=== PATIENT | female | born 1980 | race Caucasian/White ===

== ENCOUNTER 2016-12-20 15:49 | Emergency (ER) | payer OTHER ==
[2016-12-20 15:55] VITALS: RESP 18
--- NOTE | 2016-12-20 17:14 | CPEKG ---
Heart Rate: 114 RR Interval: 526 P-R Interval: 176 QRSD Interval: 76 QT Interval: 332 QTC Interval: 458 P [place]: 65 QRS [place]: 62 T Wave [place]: 16 EKG Severity - BORDERLINE ECG - EKG Impression: SINUS TACHYCARDIA EKG Impression: PROBABLE LEFT ATRIAL ABNORMALITY EKG Impression: BORDERLINE T ABNORMALITIES, ANTERIOR LEADS Electronically Signed By: Barry De Dios 20-Dec-2016 19:14:49
[2016-12-20 17:39] LABS: % IMMATURE GRANULYOCYTES 0.5 % (0.0-1.1); ABSOLUTE IMMATURE GRANULOCYTES 0.04 10^3/uL (0.00-0.10); ADD DIFF? NO; ADD MORPH? NO; ADD SCAN? NO; ATYPICAL LYMPHOCYTE FLAG 10 (0-99); FRAGMENT RBC FLAG 0 (0-99); HEMATOCRIT 42.6 % (38.0-47.0); HEMOGLOBIN 14.6 g/dL (12.6-16.3); LEFT SHIFT FLG 0 (0-99); LIPEMIA HEMOLYSIS FLAG 90 (0-99); MEAN CELL HEMOGLOBIN 28.6 pg (27.9-34.1); MEAN CELL HEMOGLOBIN CONCENTR. 34.3 g/dL (32.4-36.7); MEAN CELL VOLUME 83.5 fL (81.5-99.8); MEAN PLATELET VOLUME 10.8 fL (8.7-11.7); PLATELET CLUMPS FLAG 0 (0-99); PLATELET COUNT 196 10^3/uL (150-400); RED CELL DISTRIBUTION WIDTH 12.1 % (11.5-15.2)
[2016-12-20] MEDS ORDERED: IOPAMIDOL (ISOVUE 370) 100 ML BTL IV ONE (18:04)
[2016-12-20 18:08] LABS: ANION GAP 16 mEq/L (8-16); CALCIUM 10.3 mg/dL (8.5-10.4); CARBON DIOXIDE 22 mEq/l (22-31); CHLORIDE 103 mEq/L (97-110); GLOMERULAR FILTRATION RATE > 60; GLUCOSE 93 mg/dL (70-100); SODIUM 141 mEq/L (134-144)
[2016-12-20 18:20] LABS: TROPONIN I < 0.012 ng/mL (0-0.034)
[2016-12-20 19:13] VITALS: PULSE 82; TEMP 98.6
--- NOTE | 2016-12-20 19:20 | EDPHY ---
H & P Stated Complaint: Feels SOB x 10 days, transient CP x 4 days HPI/ROS: Chief complaint: Shortness of breath and chest pain History of present illness: This is a 36-year-old female who presents to the emergency department for evaluation of shortness of breath and chest pain. Patient reports the onset of shortness of breath approximately 10 days ago. She reports it is more or less constant although it waxes and wanes in intensity. She reports over the last 4-5 days she has developed the chest pain. She describes a sharp chest pain. It is intermittent in nature lasting only a few seconds. It moves sites, sometimes on the right side of the chest, sometimes on the left. She does report it seems to be somewhat exacerbated by certain activities, on occasion with exertion but not always as well as on occasion with eating but not always. She denies any alleviating factors. She has had occasional numbness and tingling in the hands and feet on both sides. She denies other associated signs or symptoms including no fevers, no cold symptoms, no nausea or vomiting, no pain or swelling in the legs. She has never had similar. Review of systems: A 10 point review of systems was obtained and other than described above was negative - Personal History LMP (Females 10-55): IUD In Place Current Tetanus Diphtheria and Acellular Pertussis (TDAP): Yes - Medical/Surgical History Other PMH: healthy per pt - Physical Exam Exam: General Appearance: Alert, nontoxic. Eyes: Pupils equal and round no pallor or injection. ENT, Mouth: Mucous membranes moist. Respiratory: There are no retractions, lungs are clear to auscultation. Cardiovascular: Tachycardic with regular rhythm. Gastrointestinal: Abdomen is soft and non tender, no masses, bowel sounds normal. Neurological: Alert and oriented x4. Strength and sensation intact and symmetrical. Skin: Warm and dry, no rashes. Musculoskeletal: Neck is supple non tender. Extremities are symmetrical, full range of motion. No evidence of DVT in the lower extremities. Psychiatric: Patient is oriented X 3, there is no agitation. Constitutional: Initial Vital Signs Temperature (C) 36.7 C 12/20/16 15:52 Heart Rate 112 H 12/20/16 15:52 Respiratory Rate 18 12/20/16 15:52 Blood Pressure 132/90 H 12/20/16 15:52 O2 Sat (%) 100 12/20/16 15:52 O2 Delivery Mode Room Air Allergies/Adverse Reactions: Penicillins Allergy (Intermediate, Verified 12/20/16 15:55) Hives Home Medications: Medication Instructions Recorded NK [No Known Home Meds] 12/20/16 Medical Decision Making - Diagnostics Imaging Results: Imaging Impressions Chest/Thorax CTA 12/20/16 17:54 Impression: 1. No definite pulmonary thromboemboli. 2. No aortic aneurysm or dissection. 3. No acute pulmonary disease. Findings and recommendations discussed with Emergency Department physician, LEONEL Shine, at 1851 hours, on December 20, 2016. Final report concurs with initial preliminary interpretation. Imaging: Discussed imaging studies w/ call or contact centre manager Radiologist ED Course/Re-evaluation: Patient is discussed with my secondary supervising physician Dr. Barry De Dios. Patient presents to the emergency department with shortness of breath and now chest pain. On presentation she is nontoxic. She is afebrile. She is tachycardic but otherwise vital signs are stable. Physical exam is benign. Blood studies with elevated D-dimer otherwise unremarkable. CT of the chest is negative. EKG unremarkable. My suspicion for serious underlying pathology is low. I believe she is appropriate for discharge home. Home care is discussed. She is asked to follow up with her primary care doctor for recheck. Return precautions are given. Patient voiced understanding and agreement with plan. Differential Diagnosis: Included but not limited to pulmonary embolism, cardiac dysrhythmia, pneumothorax, pulmonary infections, reflux, peptic ulcer disease, musculoskeletal pain, anxiety, unlikely ACS - Data Points Laboratory Results: Laboratory Results 12/20/16 17:28 12/20/16 17:28 12/20/16 12/20/16 12/20/16 17:28 17:28 17:28 WBC RBC Hgb Hct MCV MCH MCHC RDW Plt Count MPV Neut % (Auto) Lymph % (Auto) Bradford % (Auto) Eos % (Auto) Baso % (Auto) Nucleat RBC Rel Count Absolute Neuts (auto) Absolute Lymphs (auto) Absolute Monos (auto) Absolute Eos (auto) Absolute Basos (auto) Absolute Nucleated RBC Immature Gran % Immature Gran # D-Dimer 1.08 ug/mLFEU H ug/mLFEU (0.00-0.50) Sodium 141 mEq/L mEq/L (134-144) Potassium 4.0 mEq/L mEq/L (3.5-5.2) Chloride 103 mEq/L mEq/L (97-110) Carbon Dioxide 22 mEq/l mEq/l (22-31) Anion Gap 16 mEq/L mEq/L (8-16) BUN 15 mg/dL mg/dL (7-23) Creatinine 1.0 mg/dL mg/dL (0.6-1.0) Estimated GFR > 60 Glucose 93 mg/dL mg/dL (70-100) Calcium 10.3 mg/dL mg/dL (8.5-10.4) Troponin I < 0.012 ng/mL ng/mL (0-0.034) Beta HCG, Qual NEGATIVE 12/20/16 17:28 WBC 7.77 10^3/uL 10^3/uL (3.80-9.50) RBC 5.10 10^6/uL 10^6/uL (4.18-5.33) Hgb 14.6 g/dL g/dL (12.6-16.3) Hct 42.6 % % (38.0-47.0) MCV 83.5 fL fL (81.5-99.8) MCH 28.6 pg pg (27.9-34.1) MCHC 34.3 g/dL g/dL (32.4-36.7) RDW 12.1 % % (11.5-15.2) Plt Count 196 10^3/uL 10^3/uL (150-400) MPV 10.8 fL fL (8.7-11.7) Neut % (Auto) 75.3 % H % (39.3-74.2) Lymph % (Auto) 16.5 % % (15.0-45.0) Bradford % (Auto) 6.9 % % (4.5-13.0) Eos % (Auto) 0.3 % L % (0.6-7.6) Baso % (Auto) 0.5 % % (0.3-1.7) Nucleat RBC Rel Count 0.0 % % (0.0-0.2) Absolute Neuts (auto) 5.85 10^3/uL 10^3/uL (1.70-6.50) Absolute Lymphs (auto) 1.28 10^3/uL 10^3/uL (1.00-3.00) Absolute Monos (auto) 0.54 10^3/uL 10^3/uL (0.30-0.80) Absolute Eos (auto) 0.02 10^3/uL L 10^3/uL (0.03-0.40) Absolute Basos (auto) 0.04 10^3/uL 10^3/uL (0.02-0.10) Absolute Nucleated RBC 0.00 10^3/uL 10^3/uL (0-0.01) Immature Gran % 0.5 % % (0.0-1.1) Immature Gran # 0.04 10^3/uL 10^3/uL (0.00-0.10) D-Dimer Sodium Potassium Chloride Carbon Dioxide Anion Gap BUN Creatinine Estimated GFR Glucose Calcium Troponin I Beta HCG, Qual Departure - Departure Disposition: Home, Routine, Self-Care Clinical Impression: Shortness of breath Chest pain Qualifiers: Chest pain type: unspecified Qualified Code(s): R07.9 - Chest pain, unspecified Condition: Good Instructions: Chest Pain (ED), Dyspnea (ED) Additional Instructions: Please follow-up with your primary care doctor on Tuesday as arranged If symptoms worsen or new symptoms develop return to the emergency room for recheck Referrals: NO,SPECIFIC DOCTOR [Other] - As per Instructions [facility],. [Clinic] - As per Instructions
[2016-12-20 19:33] VITALS: BP 111/73; O2SAT 96
== END 2016-12-20 19:33 | disposition home or self-care (01) ==
DX: R06.02 Shortness of breath (principal); R07.9 Chest pain, unspecified
CPT/HCPCS: Q9967